=== PATIENT | female | born 1995 | race African-American/Black ===

== ENCOUNTER 2021-01-28 10:45 | Emergency (ER) | payer BC, OTHER ==
[~2021-01-28] VITALS: Ht 157.5 cm; Wt 107.8 kg
[2021-01-28 12:12] LABS: BASOPHILS % (AUTO) 1 % (0-1); EOSINOPHILS % (AUTO) 5 % (1-7); LYMPHOCYTES % (AUTO) 49 % (22-44); MEAN CORPUSCULAR HEMOGLOBIN 29.3 pg (27.0-34.8); MEAN CORPUSCULAR HGB CONC 33.5 g/dL (32.4-35.8); MEAN PLATELET VOLUME 8.2 fL (7.4-10.4); MONOCYTES % (AUTO) 9 % (2-9); NEUTROPHILS % (AUTO) 37 % (42-75); PLATELET COUNT 354 x10^3/uL (130-400); RED BLOOD COUNT 4.87 x10^6/uL (3.82-5.3); RED CELL DISTRIBUTION WIDTH 14.1 % (9.6-15.2)
[2021-01-28 12:22] LABS: ALBUMIN 3.7 g/dL (3.4-5.0); CALCIUM 9.1 mg/dL (8.5-10.1); CREATININE 0.82 mg/dL (0.55-1.02)
[2021-01-28 12:46] LABS: CHLORIDE 107 mmol/L (98-107)
[2021-01-28 12:47] LABS: ANION GAP 3 mmol/L (5-15)
--- NOTE | 2021-01-28 14:56 | NUR ---
BREAK RN: PT RESTING IN ROOM. VS STABLE. CALL LIGHT IN PLACE. WILL CONTINUE TO MONITOR WHILE PRIMARY RN IS ON BREAK.
[2021-01-28 16:40] VITALS: BP 109/66
--- NOTE | 2021-01-28 16:41 | NUR ---
PT REC'VD DISCHARGE INSTRUCTIONS AND EDUCATION. PT HAD NO FURTHER QUESTIONS.
--- NOTE | 2021-01-28 17:01 | NUR ---
PT AMBULATED TO CT AREA, STEADY GAIT
== END 2021-01-28 17:03 | disposition home or self-care (01) ==
LOC: ED 12:07
DX: B34.9 Viral infection, unspecified (principal); R07.89 Other chest pain; R94.31 Abnormal electrocardiogram [ECG] [EKG]
CPT/HCPCS: 36415; 71045; 80048; 82040; 84703; 85025; 86308; 93005; 99285